=== PATIENT | female | born 1980 | race Caucasian/White ===

== ENCOUNTER 2019-10-23 09:12 | Emergency (ER) | payer SELFPAY ==
--- NOTE | 2019-10-23 10:02 | EDPHYS ---
Physician Documentation [facility] Name: Ruma Briggs Age: 39 yrs Sex: Female : 1980 Arrival Date: 10/23/2019 Time: 09:16 Bed 20 Private MD: ED Physician Darci Thompson HPI: 10/22 09:57 This 39 yrs old Female presents to ER via Unassigned with complaints of jmm Sunburn. 09:57 The patient presents with a [place] a [place], is located on the jmm face. Onset: The symptoms/episode began/occurred acutely, 1 day(s) ago. Burn type and severity: 1st degree:. Associated signs and symptoms: The patient had no loss of consciousness. This is a 39 year old female that presents to the ED with complaint of sunburn. Unable to work yesterday due to pain. . 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 - Social history:: Smoking status: Patient denies any tobacco usage or history of. ROS: 09:57 Constitutional: Negative for fever, chills, and weight loss, Cardiovascular: Negative jmm for chest pain, palpitations, and edema, Respiratory: Negative for shortness of breath, cough, wheezing, and pleuritic chest pain. 09:57 Skin: Positive for burn. 09:57 All other systems are negative. Exam: 09:57 Constitutional: This is a well developed, well nourished patient who is awake, alert, jmm and in no acute distress. 09:57 Eyes: EOMI, no conjunctival erythema appreciated ENT: Moist Mucus Membranes Neck: Trachea midline, Supple Chest/axilla: Normal chest wall appearance and motion. Cardiovascular: Regular rate and rhythm. No edema appreciated Respiratory: Normal respirations, no respiratory distress appreciated Abdomen/GI: Non distended, soft Back: Normal ROM 09:57 MS/ Extremity: Moves all extremities, no obvious deformities appreciated, no edema noted to the lower extremities Neuro: Awake and alert, normal gait Psych: Behavior is normal, Mood is normal, Patient is cooperative and pleasant 09:57 Head/face: Noted is generalized facial erythema noted. 09:57 Skin: injury, burn(s), and is located on the face. Vital Signs: 09:37 BP 121 / 64; Pulse 80; Resp 18 S; Temp 98.1(O); Pulse Ox 99% on R/A; Weight 81.65 kg aa5 (R); Height 5 ft. 6 in. (167.64 cm) (R); Pain 4/10; 09:37 Body Mass Index 29.05 (81.65 kg, 167.64 cm) aa5 MDM: 09:57 Patient medically screened. [facility] 09:57 Data reviewed: vital signs, nurses notes. Counseling: I had a detailed discussion with [facility] the patient and/or guardian regarding: the historical points, exam findings, and any diagnostic results supporting the discharge/admit diagnosis, the need for outpatient follow up, to return to the emergency department if symptoms worsen or persist or if there are any questions or concerns that arise at home. ED course: Patient is alert and non toxic in appearance in the ED. patient is advised to follow up with pcp and otherwise given strict return precautions. Patient understood and agrees with the plan of care. . Administered Medications: No medications were administered Disposition: 11:38 Co-signature as Attending Physician, Darci Thompson MD I agree with the assessment and kdr plan of care. Disposition: 10/23/19 10:02 Discharged to Home. Impression: Sunburn of first degree. - Condition is Stable. - Discharge Instructions: Sunburn, Adult. - Medication Reconciliation Form, Thank You Letter, Antibiotic Education, Prescription Opioid Use, Work release form form. - Follow up: Private Physician; When: 2 - 3 days; Reason: Recheck today's complaints, Continuance of care, Re-evaluation by your physician. Signatures: Darci Thompson MD MD [facility] Yehuda Paul PA PA jmm Calderon, Audri, RN RN aa5 Corrections: (The following items were deleted from the chart) 10:15 10:02 10/23/2019 10:02 Discharged to Home. Impression: Sunburn of first degree. aa5 Condition is Stable. Forms are Medication Reconciliation Form, Thank You Letter, Antibiotic Education, Prescription Opioid Use. Follow up: Private Physician; When: 2 - 3 days; Reason: Recheck today's complaints, Continuance of care, Re-evaluation by your physician. sandy
--- NOTE | 2019-10-23 10:16 | ER ---
Nurse's Notes [facility] Name: Ruma Briggs Age: 39 yrs Sex: Female : 1980 Arrival Date: 10/23/2019 Time: 09:16 Bed 20 Private MD: Diagnosis: Sunburn of first degree Presentation: 10/22 09:37 Chief complaint: Patient states: "burned in the sun a few days ago and I missed work aa5 because of it so I just need a work note and maybe a cream for the sunburn". 09:37 Coronavirus screen: Proceed with normal triage. Patient denies a cough. Patient denies aa5 shortness of breath or difficulty breathing. Patient denies measured and/or subjective temperature greater than 100.4F prior to today's visit. Patient denies travel on a cruise ship or to a country the [facility] currently lists as an affected area. Patient denies contact with known and/or suspected case of COVID-19. Ebola Screen: Patient negative for fever greater than or equal to 101.5 degrees Fahrenheit, and additional compatible Ebola Virus Disease symptoms. Initial Sepsis Screen: Does the patient meet any 2 criteria? No. Patient's initial sepsis screen is negative. Does the patient have a suspected source of infection? No. Patient's initial sepsis screen is negative. Risk Assessment: Do you want to hurt yourself or someone else? Patient reports no desire to harm self or others. Onset of symptoms was 2019. 09:37 Acuity: CHAD 5 aa5 09:37 Method Of Arrival: Ambulatory aa5 Triage Assessment: 09:37 General: Appears Behavior is. Respiratory: Injury Description: Burn was sustained. 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 - Social history:: Smoking status: Patient denies any tobacco usage or history of. Screenin:45 Abuse screen: Denies threats or abuse. Nutritional screening: No deficits noted. aa5 Tuberculosis screening: No symptoms or risk factors identified. Fall Risk None identified. Assessment: 09:13 General: Appears comfortable, Behavior is calm, cooperative. Pain: Complains of pain in aa5 back, chest, right arm and left arm Pain currently is 4 out of 10 on a pain scale. Quality of pain is described as burning, Is continuous. Neuro: Level of Consciousness is awake, alert, obeys commands, Oriented to person, place, time, situation. Cardiovascular: Patient's skin is warm and dry. Respiratory: Airway is patent Respiratory effort is even, unlabored, Respiratory pattern is regular, symmetrical. GI: No signs and/or symptoms were reported involving the gastrointestinal system. : No signs and/or symptoms were reported regarding the genitourinary system. EENT: No signs and/or symptoms were reported regarding the EENT system. Derm: Skin is pink, warm \\T\\ dry. Skin is red to chest, abdomen, back, and jimenez arms that is sunburn 1st degree. 09:13 Musculoskeletal: Range of motion: intact in all extremities. aa5 10:13 Reassessment: Patient is alert, oriented x 3, equal unlabored respirations, skin aa5 warm/dry/pink. Vital Signs: 09:37 BP 121 / 64; Pulse 80; Resp 18 S; Temp 98.1(O); Pulse Ox 99% on R/A; Weight 81.65 kg aa5 (R); Height 5 ft. 6 in. (167.64 cm) (R); Pain 4/10; 09:37 Body Mass Index 29.05 (81.65 kg, 167.64 cm) aa5 ED Course: 09:16 Patient arrived in ED. ag5 09:37 Arm band placed on Patient placed in an exam room, on a stretcher. aa5 09:37 Patient has correct armband on for positive identification. Bed in low position. Call aa5 light in reach. Side rails up X 1. 09:39 Yehuda Paul PA [facility] 09:39 Darci Thompson MD is Attending Physician. [facility] 09:58 Shadia French, LATESHA is Primary Nurse. ca1 10:09 Triage completed. aa5 10:15 No provider procedures requiring assistance completed. Patient did not have IV access aa5 during this emergency room visit. Administered Medications: No medications were administered Outcome: 10:02 Discharge ordered by . [facility] 10:13 Discharged to home ambulatory. aa5 10:13 Condition: good 10:13 Discharge instructions given to patient, Instructed on discharge instructions, follow up and referral plans. medication usage, Demonstrated understanding of instructions, follow-up care, medications. 10:15 Patient left the ED. aa5 Signatures: Yehuda Paul PA PA jmm Calderon, Audri, RN RN aa5 Shadia French RN RN ca1 [place], Kelly ag5 Corrections: (The following items were deleted from the chart) 10:49 10:20 Patient did not have IV access during this emergency room visit. aa5 aa5 10:49 10:20 No provider procedures requiring assistance completed. aa5 aa5 11:02 09:13 Derm: Skin is pink, warm \\T\\ dry. Skin is red to chest, abdomen, back, and jimenez arms aa5 that is sunburn. aa5 18:46 18:45 Injury Description: Burn was sustained ca1 ca1 18:46 18:45 General: Appears Behavior is ca1 ca1 18:46 18:45 Respiratory: ca1 ca1
[2019-10-23 10:21] VITALS: BP 121/64; TEMP 98.1; O2SAT 99
== END 2019-10-23 10:15 | disposition home or self-care (01) ==
LOC: ER 09:12
DX: L55.0 Sunburn of first degree (principal)
CPT/HCPCS: 99281